=== PATIENT | female | born 1945 | race Caucasian/White ===

== ENCOUNTER 2016-07-07 15:59 | Inpatient (IN) | payer MEDICARE, OTHER ==
[2016-07-07] MEDS ORDERED: SODIUM CHLORIDE 0.9% 1,000 ML IV ONE ×2 (16:51)
[2016-07-07] MEDS ORDERED: ONDANSETRON 4 MG/2 ML VIAL IVP PRN (18:00)
[2016-07-07] MEDS ORDERED: PHENYTOIN ER 100 MG CAPSULE PO SCH (18:00)
[2016-07-07] MEDS ORDERED: PROCHLORPERAZINE 10 MG/2 ML VIAL IVP PRN (18:00)
[2016-07-07] MEDS ORDERED: HYDROcod/ACETAM 10 MG/325 MG TABLET PO PRN (18:00)
[2016-07-07] MEDS ORDERED: SODIUM CHLORIDE 0.9% 1,000 ML IV SCH (18:00)
[2016-07-07] MEDS ORDERED: ACETAMINOPHEN 325 MG TABLET PO PRN (18:00)
[2016-07-07] MEDS ORDERED: SODIUM CHLORIDE FLUSH 0.9% 10 ML SYRINGE IVP PRN (18:00)
[2016-07-07] MEDS ORDERED: HYDROcod/ACETAM 5/325 MG TABLET PO STA (18:47)
[2016-07-07] MEDS: SODIUM CHLORIDE 0.9% 1,000 ML IV SCH (20:16)
[2016-07-07] MEDS: MAGNESIUM OXIDE 400 MG TABLET PO SCH (20:16)
[2016-07-07] MEDS: NEUTRA-PHOS 250 MG TABLET PO SCH (20:16)
[2016-07-07] MEDS: ATORVASTATIN 40 MG TABLET PO SCH (20:17)
[2016-07-07] MEDS: cefTRIAXone 1 GM in SODIUM CHLORIDE 0.9% MINIBAG 100 ML IV SCH (20:18)
[2016-07-07] MEDS: SODIUM CHLORIDE FLUSH 0.9% 10 ML SYRINGE IVP SCH (20:24)
[2016-07-07] MEDS: ZOLPIDEM 5 MG TABLET PO PRN (22:39)
[2016-07-08] MEDS: HYDROcod/ACETAM 5/325 MG TABLET PO PRN ×7 (00:16→22:00)
[2016-07-08] MEDS: SODIUM CHLORIDE 0.9% 1,000 ML IV SCH (03:36)
[2016-07-08] MEDS: SODIUM CHLORIDE FLUSH 0.9% 10 ML SYRINGE IVP SCH ×3 (05:22→20:20)
[2016-07-08] MEDS: PANTOPRAZOLE 40 MG TABLET PO SCH (06:11)
[2016-07-08] MEDS: POLYETHYLENE GLYCOL 3350 17 GM PACKET PO SCH (07:56)
[2016-07-08] MEDS: MAGNESIUM OXIDE 400 MG TABLET PO SCH (08:57)
[2016-07-08] MEDS: ENOXAPARIN 30 MG/0.3 ML SYRINGE SUBQ SCH (08:57)
[2016-07-08] MEDS: NEUTRA-PHOS 250 MG TABLET PO SCH ×3 (08:57→17:10)
[2016-07-08] MEDS: FELODIPINE ER 2.5 MG TABLET PO SCH (08:58)
[2016-07-08] MEDS ORDERED: ENOXAPARIN 40 MG/0.4 ML SYRINGE SUBQ SCH (09:00)
[2016-07-08] MEDS: NS W/20 MEQ KCL 1,000 ML IV SCH (16:16)
[2016-07-08] MEDS: cefTRIAXone 1 GM in SODIUM CHLORIDE 0.9% MINIBAG 100 ML IV SCH (20:13)
[2016-07-08] MEDS: ATORVASTATIN 40 MG TABLET PO SCH (20:13)
[2016-07-08] MEDS: ZOLPIDEM 5 MG TABLET PO PRN (22:02)
[2016-07-09] MEDS: SODIUM CHLORIDE FLUSH 0.9% 10 ML SYRINGE IVP SCH ×2 (06:09→08:40)
[2016-07-09] MEDS: PANTOPRAZOLE 40 MG TABLET PO SCH (06:09)
[2016-07-09] MEDS: HYDROcod/ACETAM 5/325 MG TABLET PO PRN (06:09)
[2016-07-09] MEDS: NS W/20 MEQ KCL 1,000 ML IV SCH (06:12)
[2016-07-09] MEDS: MAGNESIUM OXIDE 400 MG TABLET PO SCH (08:39)
[2016-07-09] MEDS: POLYETHYLENE GLYCOL 3350 17 GM PACKET PO SCH (08:39)
[2016-07-09] MEDS: NEUTRA-PHOS 250 MG TABLET PO SCH (08:39)
[2016-07-09] MEDS: ENOXAPARIN 30 MG/0.3 ML SYRINGE SUBQ SCH (08:39)
[2016-07-09] MEDS: FELODIPINE ER 2.5 MG TABLET PO SCH (08:40)
== END 2016-07-09 10:46 | disposition home or self-care (01) | DRG 690 ==
DX: N39.0 Urinary tract infection, site not specified (principal); E86.0 Dehydration; E87.1 Hypo-osmolality and hyponatremia; N17.9 Acute kidney failure, unspecified; E87.2 Acidosis; B96.89 Other specified bacterial agents as the cause of diseases classified elsewhere; E83.39 Other disorders of phosphorus metabolism; E83.42 Hypomagnesemia; N28.9 Disorder of kidney and ureter, unspecified; I10 Essential (primary) hypertension; E78.5 Hyperlipidemia, unspecified; R19.7 Diarrhea, unspecified; Z86.73 Personal history of transient ischemic attack (TIA), and cerebral infarction without residual deficits; Z79.899 Other long term (current) drug therapy; Z87.891 Personal history of nicotine dependence

== ENCOUNTER 2016-07-30 14:26 | Outpatient (CLI) | payer MEDICARE, OTHER | END 2016-07-30 14:27 | disposition home or self-care (01) | DX: N28.1 Cyst of kidney, acquired (principal) ==

== ENCOUNTER 2016-08-19 11:43 | Outpatient (CLI) | payer MEDICARE, OTHER | END 2016-08-19 11:44 | disposition home or self-care (01) | DX: N05.9 Unspecified nephritic syndrome with unspecified morphologic changes (principal); R80.9 Proteinuria, unspecified ==

== ENCOUNTER 2016-10-25 16:26 | Emergency (ER) | payer MEDICARE, OTHER ==
--- NOTE | 2016-10-25 16:39 | ED Physician Documentation ---
PD HPI FOCAL NEURO - Stated complaint Stated Complaint: SOA, CONFUSION - Chief complaint Chief Complaint: General - History obtained from History obtained from: Patient, Family - History of Present Illness Timing - onset: Other (For the last 2 days she has had intermittent confusion, shortness of breath, it was preceded by headache and diarrhea but no fevers. She is worried because a few years ago she had some strokes and it presented similarly. She has a tremor in the left upper extremity that comes and goes.) Review of Systems Ten Systems: 10 systems reviewed and negative Constitutional: denies: Fever, Chills Cardiac: denies: Chest pain / pressure, Palpitations Respiratory: denies: Cough, Hemoptysis, Wheezing GI: denies: Abdominal Pain PD PAST MEDICAL HISTORY - Past Medical History Cardiovascular: Hypertension, High cholesterol Respiratory: None Neuro: TIA Endocrine/Autoimmune: None GI: Hemorrhoids, Diverticulitis : None HEENT: Chronic hearing loss Psych: None Musculoskeletal: Other Derm: None - Past Surgical History Past Surgical History: Yes 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, 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 - Present Medications Home Medications: Ambulatory Orders Medication Instructions Recorded Confirmed Benazepril HCl 40 mg PO BID 07/07/16 07/07/16 Felodipine [Felodipine ER] 10 mg PO DAILY 07/07/16 07/07/16 Hydrocodone/Acetaminophen 1 - 2 tab PO .Q4-6H PRN 07/07/16 07/08/16 [Hydrocodon-Acetaminophen 5-325] Lovastatin 40 mg PO QPM 07/07/16 07/08/16 Omeprazole [PriLOSEC] 20 mg PO QDAC 07/07/16 07/08/16 Zolpidem [Ambien] 10 mg PO QPM 07/07/16 07/08/16 Ciprofloxacin [Cipro] 250 mg PO Q12H #10 tablet 07/09/16 HYDROcod/ACETAM 5/325 [[place] 5/325] 1 tab PO Q4HR PRN #20 tablet 07/09/16 Acetaminophen with Codeine 1 each PO Q4H PRN #10 tablet 10/25/16 [Acetaminophen-Cod #3 Tablet] Ciprofloxacin [Cipro] 250 mg PO Q12H #10 tablet 10/25/16 - Allergies Allergies/Adverse Reactions: Allergies Allergy/AdvReac Type Severity Reaction Status Date / Time atenolol Allergy Unknown Verified 07/08/16 15:33 oxycodone Allergy Unknown Verified 07/08/16 15:33 - Social History Does the pt smoke?: No Smoking Status: Former smoker - Family History Family history: reports: Non contributory PD ED PE NORMAL - Vitals Vital signs reviewed: Yes - General General: Other (She appears anxious, Says it is October 30 2013, but knows the president.) - HEENT HEENT: PERRL, EOMI - Neck Neck: Supple, no meningeal sign, No bony TTP - Cardiac Cardiac: RRR, No murmur - Respiratory Respiratory: No respiratory distress, Clear bilaterally - Abdomen Abdomen: Soft, Non tender - Back Back: No CVA TTP, No spinal TTP - Derm Derm: Normal color, Warm and dry - Extremities Extremities: No edema, No calf tenderness / cord - Neuro Neuro: No motor deficit, No sensory deficit - Psych Psych: Normal mood, Normal affect NIHSS - Time Time: 16:35 - Level of Consciousness Level of consciousness: (0) Alert, Keenly responsive LOC Questions: (1) Answers one Q correctly LOC Commands: (0) Performs both correctly - Gaze Best Gaze: (0) Normal - Visual Visual: (0) No loss - Facial Palsy Facial Palsy: (0) Normal, symmetrical movement - Motor Arms (both separate) Motor Arm (right): (0) No drift Motor Arm (left): (0) No drift - Motor Legs (both separate) Motor Leg (right): (0) No drift Motor Leg (left): (0) No drift - Limb Ataxia Limb Ataxia: (0) Absent - Sensory Sensory: (0) Normal - Best Language Best Language: (0) No aphasia - Dysarthria Dysarthria: (0) Normal - Extinction and Inattention (formally neg Extinction and inattention: (0) No abnormality - Total Score/Results Total Score/Result: 1 Results - Vitals Vitals: Vital Signs - 24 hr 10/25/16 10/25/16 10/25/16 16:30 17:42 19:35 Temperature 36.8 C Heart Rate 97 77 64 Respiratory 22 16 16 Rate Blood Pressure 129/97 H 117/65 114/58 L O2 Saturation 98 99 99 Oxygen O2 Source Room air - EKG (time done) 1647 Rate: Rate (enter#) Rhythm: NSR (frequent PVCs) Assumption: Normal Intervals: Normal RI QRS: Normal Ischemia: Normal ST segments Computer interpretation: Agree with computer - Labs Labs: Laboratory Tests 10/25/16 10/25/16 10/25/16 16:41 16:41 16:41 WBC 13.6 H RBC 4.48 Hgb 12.2 Hct 37.3 MCV 83.1 MCH 27.2 MCHC 32.7 RDW 15.2 H Plt Count 361 MPV 8.4 Neut # 10.4 H Lymph # 2.4 [place] # 0.8 Eos # 0.0 Baso # 0.1 Absolute Nucleated RBC 0.00 Nucleated RBCs 0.0 VBG pH VBG pCO2 VBG pO2 VBG HCO3 VBG Total CO2 VBG O2 Saturation VBG Base Excess Sodium 134 L Potassium 3.6 Chloride 99 L Carbon Dioxide 21 Anion Gap 14.0 H BUN 26 H Creatinine 1.6 H Estimated GFR (MDRD) 32 L Glucose 114 H Calcium 9.7 Magnesium 1.5 L Total Bilirubin 0.6 AST 30 ALT 18 Alkaline Phosphatase 75 Troponin I < 0.04 Total Protein 8.0 Albumin 4.1 Globulin 3.9 Albumin/Globulin Ratio 1.1 Lipase 25 Urine Color Urine Clarity Urine pH Ur Specific [place] Urine Protein Urine Glucose (UA) Urine Ketones Urine Occult Blood Urine Nitrite Urine Bilirubin Urine Urobilinogen Ur Leukocyte Esterase Urine RBC Urine WBC Ur Squamous Epith Cells Urine Bacteria Ur Microscopic Review Urine Culture Comments 10/25/16 10/25/16 16:41 17:55 WBC RBC Hgb Hct MCV MCH MCHC RDW Plt Count MPV Neut # Lymph # [place] # Eos # Baso # Absolute Nucleated RBC Nucleated RBCs VBG pH 7.479 H VBG pCO2 26.3 L VBG pO2 29.6 VBG HCO3 19.1 L VBG Total CO2 19.9 L VBG O2 Saturation 69.0 VBG Base Excess -2.7 L Sodium Potassium Chloride Carbon Dioxide Anion Gap BUN Creatinine Estimated GFR (MDRD) Glucose Calcium Magnesium Total Bilirubin AST ALT Alkaline Phosphatase Troponin I Total Protein Albumin Globulin Albumin/Globulin Ratio Lipase Urine Color YELLOW Urine Clarity HAZY Urine pH 7.5 Ur Specific [place] 1.010 Urine Protein NEGATIVE Urine Glucose (UA) NEGATIVE Urine Ketones NEGATIVE Urine Occult Blood NEGATIVE Urine Nitrite POSITIVE H Urine Bilirubin NEGATIVE Urine Urobilinogen 0.2 (NORMAL) Ur Leukocyte Esterase SMALL H Urine RBC None Seen Urine WBC >25 H Ur Squamous Epith Cells NONE SEEN Urine Bacteria Moderate H Ur Microscopic Review INDICATED Urine Culture Comments INDICATED - Rads (name of study) CT Head Radiology: EMP read contemporaneously (atrophy which is somewhat assymetric ) PD MEDICAL DECISION MAKING - ED course ED course: She presents with mild confusion and tremor, her concern is for stroke, however no real evidence of this on exam. She is found to have a UTI and probably some anxiety/hyperventilation based on blood gas. She is feeling much better after reassurance, IV fluids, and Rocephin IV. Her BUN was up consistent with dehydration. Departure - Departure Disposition: Home, Self Care Clinical Impression: DANIA (acute kidney injury) UTI (urinary tract infection) Qualifiers: Urinary tract infection type: acute cystitis Hematuria presence: without hematuria Qualified Code(s): N30.00 - Acute cystitis without hematuria Condition: Good Record reviewed to determine appropriate education?: Yes Instructions: ED UTI Cystitis Female Prescriptions: Acetaminophen with Codeine [Acetaminophen-Cod #3 Tablet] 1 each PO Q4H PRN #10 tablet PRN Reason: Pain Ciprofloxacin [Cipro] 250 mg PO Q12H #10 tablet Comments: Follow-up with Dr. Harmon on Friday or Friday. Return if worse in the interim, especially if you are running a fever. You do have some asymmetry on your head CT, prior stroke probably caused that, discussed this with Dr. Harmon. We will culture your urine, the results should be done in 48-72 hours. If an antibiotic change is necessary we will call you. Return if worse in the meantime, especially if you develop increasing flank pain, fevers, or cannot keep down the medication. Discharge Date/Time: 10/25/16 19:36
[2016-10-25 16:48] LABS: BASOPHILS # (AUTO) 0.1 10^3/uL (0.0-0.1); BASOPHILS % (AUTO) 0.5 %; EOSINOPHILS % (AUTO) 0.3 %; HCT - HEMATOCRIT 37.3 % (37.0-47.0); HGB - HEMOGLOBIN 12.2 g/dL (12.0-16.0); LYMPHOCYTES # (AUTO) 2.4 10^3/uL (1.5-3.5); LYMPHOCYTES % (AUTO) 17.3 %; MEAN CORPUSCULAR HEMOGLOBIN 27.2 pg (27.0-31.0); MEAN CORPUSCULAR HGB CONC 32.7 g/dL (32.0-36.0); MEAN CORPUSCULAR VOLUME 83.1 fL (81.0-99.0); MEAN PLATELET VOLUME 8.4 fL (7.9-10.8); MONOCYTES # (AUTO) 0.8 10^3/uL (0.0-1.0); MONOCYTES % (AUTO) 5.8 %; NEUTROPHILS # (AUTO) 10.4 10^3/uL (1.5-6.6); NEUTROPHILS % (AUTO) 76.1 %; RED BLOOD COUNT 4.48 10^6/uL (4.20-5.40); RED CELL DISTRIBUTION WIDTH 15.2 % (12.0-15.0); UNCORRECTED WHITE BLOOD COUNT 13.6 x10^3/uL; WHITE BLOOD COUNT 13.6 x10^3/uL (4.8-10.8)
[2016-10-25 16:51] LABS: VBG PH 7.479 (7.31-7.41)
[2016-10-25 16:52] LABS: VBG BASE EXCESS -2.7 mmol/L (-2 - +2); VBG TOTAL CO2 19.9 mmol/L (24-29)
[2016-10-25 17:02] LABS: ALBUMIN/GLOBULIN RATIO 1.1 (1.0-2.2); BILIRUBIN,TOTAL 0.6 mg/dL (0.2-1.0); CALCIUM 9.7 mg/dL (8.5-10.3); CREATININE 1.6 mg/dL (0.4-1.0); MAGNESIUM 1.5 mg/dL (1.7-2.8); POTASSIUM 3.6 mmol/L (3.5-5.0)
[2016-10-25] MEDS ORDERED: SODIUM CHLORIDE 0.9% 1,000 ML IV ONE (17:39)
--- NOTE | 2016-10-25 18:11 | CT Preliminary Report ---
Exam: CT Head W/O IMPRESSION: Generalized age-related cortical atrophic changes without evidence of acute intracranial abnormality. There is asymmetry of the bilateral cerebral hemispheres with atrophy at the right parie sunil and occipital lobes greater than the left. An MRI of the brain without and with contrast is recom mended to further evaluate. [facility] SITE ID: [id number]
--- NOTE | 2016-10-25 18:14 | CT Report ---
EXAM: CT HEAD EXAM DATE: 10/25/2016 05:38 PM. CLINICAL HISTORY: Left upper extremity tremor, confusion. COMPARISON: None. TECHNIQUE: Multiaxial CT images were obtained from the foramen magnum to the vertex. IV contrast: Non e. Reformats: Coronal. In accordance with CT protocol optimization, one or more of the following dose reduction techniques w ere utilized for this exam: automated exposure control, adjustment of mA and/or KV based on patient s ize, or use of iterative reconstructive technique. FINDINGS: Parenchyma: No intraparenchymal hemorrhage. No midline shift, or CT findings of acute infarction. Gra y-white differentiation is distinct. Minimal bilateral supratentorial chronic microangiopathy suspect ed. Extraaxial Spaces: Normal for age. No subdural or epidural collections identified. Ventricles: The ventricles and cortical sulci are enlarged, consistent with age-related tissue loss. There is more cerebral cortical atrophy in the right parietal and occipital lobes compared to the le ft. Sinuses: Imaged paranasal sinuses, orbits, and mastoids show no significant abnormality. Bones: No evidence of fracture or calvarial defect. IMPRESSION: Generalized age-related cortical atrophic changes without evidence of acute intracranial abnormality. There is asymmetry of the bilateral cerebral hemispheres with atrophy at the right parie sunil and occipital lobes greater than the left. An MRI of the brain without and with contrast is recom mended to further evaluate. [facility] Referring Provider Line: [phone] SITE ID: [id number]
[2016-10-25 18:15] LABS: BILIRUBIN,URINE NEGATIVE (NEGATIVE); PH,URINE 7.5 PH (5.0-7.5); UA w/ MICROSCOPIC CHARGE YES
[2016-10-25 18:27] LABS: WBC,URINE >25 /HPF (0-5)
[2016-10-25 18:28] LABS: UR CULTURE IF IND INDICATED
[2016-10-25] MEDS ORDERED: ACETAMINOPHEN/CODEINE 300 MG/30 MG TABLET PO STA (18:46)
[2016-10-25] MEDS ORDERED: cefTRIAXone 1 GM in SODIUM CHLORIDE 0.9% MINIBAG 100 ML IV STA (18:46)
[2016-10-25] MEDS ORDERED: cefTRIAXone 1 GM VIAL ONE (18:52)
[2016-10-25] MEDS ORDERED: ACETAMINOPHEN/CODEINE 300 MG/30 MG TABLET PO ONE (18:52)
[2016-10-25 19:36] VITALS: BP 114/58
== END 2016-10-25 19:36 | disposition home or self-care (01) ==
LOC: ED 16:26
DX: N17.9 Acute kidney failure, unspecified (principal); N30.00 Acute cystitis without hematuria; I10 Essential (primary) hypertension; R94.31 Abnormal electrocardiogram [ECG] [EKG]; Z86.73 Personal history of transient ischemic attack (TIA), and cerebral infarction without residual deficits; Z87.891 Personal history of nicotine dependence
CPT/HCPCS: 36415; 51701; 70450; 80053; 81001; 82803; 83690; 83735; 84484; 85025; 87077; 87086; 87181; 93005; 96374; 99284; 99285; A9270; 81003

== ENCOUNTER 2017-03-07 09:36 | Outpatient (CLI) | payer MEDICARE, OTHER | END 2017-03-07 09:37 | disposition short-term general hospital (02) | LOC: EMS 09:36 | PROVIDERS: ATTEND Surgery | DX: R11.2 Nausea with vomiting, unspecified (principal) | CPT/HCPCS: A0170; A0425; A0427 ==

== ENCOUNTER 2017-12-22 08:58 | Emergency (ER) | payer MEDICARE, OTHER ==
[2017-12-22] MEDS ORDERED: KETOROLAC 60 MG/2 ML VIAL IM STA (10:05)
[2017-12-22] MEDS ORDERED: DEXAMETHASONE 10 MG/ML VIAL PO STA (10:05)
[2017-12-22] MEDS ORDERED: CHERRY SYRUP 10 ML UDC PO ONE (10:09)
[2017-12-22] MEDS ORDERED: HYDROcod/ACETAM 5/325 MG TABLET PO STA (11:22)
--- NOTE | 2017-12-22 11:51 | XRAY Report ---
Reason: fall knee contusion MCL sprain Procedure Date: 12/22/2017 Accession Number: [id number] / [id number] Procedure: XR - Knee 4 View LT CPT Code: FULL RESULT: EXAM: LEFT KNEE RADIOGRAPHY EXAM DATE: 12/22/2017 10:41 AM. CLINICAL HISTORY: Fall knee contusion MCL sprain. COMPARISON: None. TECHNIQUE: 3 views. FINDINGS: Bones: No fractures or destructive bone lesions. Joints: Moderate to severe diminishment of joint space with periarticular spurring in the tricompartments, worse in the lateral compartment and small amount of knee joint effusion visualized. No dislocation. Soft Tissues: No soft tissue swelling. IMPRESSION: 1. Negative for fracture or dislocation. 2. 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 Kellgren and Mamadou classification of osteoarthritis: Grade 0: no radiographic features of osteoarthritis are present Grade 1: doubtful joint space narrowing (JSN) and possible osteophytic lipping Grade 2: definite osteophytes and possible JSN on anteroposterior weight-bearing radiograph Grade 3: multiple osteophytes, definite JSN, sclerosis, possible bony deformity Grade 4: large osteophytes, marked JSN, severe sclerosis and definite bony deformity [facility]
--- NOTE | 2017-12-22 11:52 | XRAY Report ---
Reason: chest wall contusion Procedure Date: 12/22/2017 Accession Number: [id number] / [id number] Procedure: XR - Ribs w/PA Chest LT CPT Code: FULL RESULT: EXAM: LEFT RIB RADIOGRAPHY EXAM DATE: 12/22/2017 10:42 AM. CLINICAL HISTORY: Chest wall contusion 3 days ago, the left rib pain. COMPARISON: None. TECHNIQUE: 1 view of the chest and 2 views of the ribs. FINDINGS: Bones: No fracture or bone lesion. Lungs: No focal opacities. No pneumothorax. No pleural effusions. Mediastinum: Heart and mediastinal contours are unremarkable. IMPRESSION: Negative chest and left rib radiography. [facility]
[2017-12-22 12:00] VITALS: BP 131/82
--- NOTE | 2017-12-22 12:02 | ED Physician Documentation ---
PD HPI Fall - Stated complaint Stated Complaint: LT SIDED/BACK PX/GLF - Chief complaint Chief Complaint: Trauma Ext - History obtained from History obtained from: Patient, Family - History of Present Illness Mechanism of injury: Tripped Fall distance: Standing position Where injury occurred: Home Timing - onset: How many days ago (4) Injury(ies) location: Chest, Left Uppper Extremity, Left Lower Extremity Quality of pain: Pain Associated symptoms: No: LOC, AMS, Amnesia, Seizures, Ear drainage, Nasal drainage, Neck pain, Weakness, Paresthesias, Dyspnea, Nausea / vomiting, Hematemesis, Abdominal distension Symptoms improve with: Rest Worsens with: Movement, Palpation Contributing factors: No: Anticoagulated Similar symptoms before: Has not had sx before Recently seen: Not recently seen - Additional information Additional information: 72-year-old female had a fall in her home 4 days ago she tripped and fell onto her left side and she has a burn to her left elbow and pain in her left chest with a bruise to the area. She states the pain in her left chest is worse today and she was expecting to improve. She also has pain in her left knee especially with ambulation and the knee feels unstable. She is always had pain in her knees. Review of Systems Constitutional: denies: Fever Eyes: denies: Decreased vision Ears: denies: Ear pain Nose: denies: Congestion Throat: denies: Sore throat Cardiac: reports: Chest pain / pressure. denies: Palpitations, Pedal edema, Calf pain Respiratory: denies: Dyspnea, Cough GI: denies: Abdominal Pain, Nausea, Vomiting : denies: Dysuria, Frequency Musculoskeletal: reports: Extremity pain, Joint pain, Extremity swelling, Joint swelling, Pain with weight bearing. 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 - Present Medications Home Medications: Ambulatory Orders Medication Instructions Recorded Confirmed Benazepril HCl 40 mg PO BID 07/07/16 07/07/16 Felodipine [Felodipine ER] 10 mg PO DAILY 07/07/16 07/07/16 Hydrocodone/Acetaminophen 1 - 2 tab PO .Q4-6H PRN 07/07/16 07/08/16 [Hydrocodone-Acetamin 5-325 mg] Lovastatin 40 mg PO QPM 07/07/16 07/08/16 Omeprazole [PriLOSEC] 20 mg PO QDAC 07/07/16 07/08/16 Zolpidem [Ambien] 10 mg PO QPM 07/07/16 07/08/16 Ciprofloxacin [Cipro] 250 mg PO Q12H #10 tablet 07/09/16 HYDROcod/ACETAM 5/325 [[place] 5/325] 1 tab PO Q4HR PRN #20 tablet 07/09/16 Acetaminophen with Codeine 1 each PO Q4H PRN #10 tablet 10/25/16 [Acetaminophen-Cod #3 Tablet] Ciprofloxacin [Cipro] 250 mg PO Q12H #10 tablet 10/25/16 HYDROcod/ACETAM 5/325 [[place] 5/325] 1 - 2 ea PO Q6H PRN #15 tablet 12/22/17 - Allergies Allergies/Adverse Reactions: Allergies Allergy/AdvReac Type Severity Reaction Status Date / Time No Known Drug Allergies Allergy Verified 12/22/17 09:16 - Social History Does the pt smoke?: No Smoking Status: Never smoker Does the pt drink ETOH?: No Does the pt have substance abuse?: No - Immunizations Immunizations are current?: Yes PD ED PE NORMAL - Vitals Vital signs reviewed: Yes (tachy ) - General General: No acute distress, Well developed/nourished - HEENT HEENT: Atraumatic, PERRL, EOMI - Neck Neck: Supple, no meningeal sign - Cardiac Cardiac: RRR, No murmur - Respiratory Respiratory: No respiratory distress, Clear bilaterally, Other (There is ecchymosis to the left lateral chest wall superior to the breast under the axilla. ) - Abdomen Abdomen: Soft, Non tender - Back Back: No CVA TTP, No spinal TTP - Derm Derm: Normal color, Warm and dry, No rash - Extremities Extremities: No deformity, No edema, Other (There is swelling and point tenderness to the left knee. There is instability of the medial collateral ligmament. There is full ROM without much pain. 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, No motor deficit, No sensory deficit, Normal speech Eye Opening: Spontaneous Motor: Obeys Commands Verbal: Oriented GCS Score: 15 - Psych Psych: Normal mood, Normal affect Results - Vitals Vitals: Vital Signs - 24 hr 12/22/17 12/22/17 12/22/17 09:11 12:00 12:29 Temperature 36.4 C L 36.0 C L Heart Rate 102 H 92 Respiratory 20 20 Rate Blood Pressure 114/68 131/82 H O2 Saturation 98 98 Oxygen O2 Source Room air - Rads (name of study) ribs and PA chest Radiology: Prelim report reviewed (Impression: Negative chest and left rib radiography.), EMP read indepedently, See rad report left knee Radiology: Prelim report reviewed (Impression: 1. Negative for fracture or dislocation. 2 Osteoarthritis, predominantly in the lateral compartment kilogram Mamadou grade 3.), EMP read indepedently, See rad report PD MEDICAL DECISION MAKING - ED course Complexity details: reviewed results, re-evaluated patient, considered differential, d/w patient, d/w family ED course: 72-year-old female with a ground-level fall has a contusion to the chest wall and 4 days later she has worsening pain. She is come to the emergency department with this pain in her left chest and some swelling and instability of the left knee. She does appear to have sprain of the medial collateral ligament. She is administered dexamethasone and Toradol here in the emergency department she is eventually given hydrocodone as well she does have improvement with all those measures in her pain. She is subsequently placed into a knee immobilizer as well. She feels that she is able to ambulate more easily with this and does not have a feeling of instability. - Sepsis Event Vital Signs: Vital Signs - 24 hr 12/22/17 12/22/17 12/22/17 09:11 12:00 12:29 Temperature 36.4 C L 36.0 C L Heart Rate 102 H 92 Respiratory 20 20 Rate Blood Pressure 114/68 131/82 H O2 Saturation 98 98 Oxygen O2 Source Room air Departure - Departure Disposition: 01 Home, Self Care Clinical Impression: Chest wall contusion Qualifiers: Encounter type: initial encounter Laterality: left Qualified Code(s): S20.212A - Contusion of left front wall of thorax, initial encounter Sprain of left knee Qualifiers: Encounter type: initial encounter Involved ligament of knee: medial collateral ligament Qualified Code(s): S83.412A - Sprain of medial collateral ligament of left knee, initial encounter Condition: Stable Instructions: ED Contusion Chest Wall, ED Sprain Knee Follow-Up: Dee Harmon MD [Primary Care Provider] - Prescriptions: HYDROcod/ACETAM 5/325 [[place] 5/325] 1 - 2 ea PO Q6H PRN #15 tablet PRN Reason: Pain Discharge Date/Time: 12/22/17 12:35
== END 2017-12-22 12:35 | disposition home or self-care (01) ==
LOC: ED 08:58
DX: S20.212A Contusion of left front wall of thorax, initial encounter (principal); S83.412A Sprain of medial collateral ligament of left knee, initial encounter; I10 Essential (primary) hypertension; W01.0XXA Fall on same level from slipping, tripping and stumbling without subsequent striking against object, initial encounter; Y92.009 Unspecified place in unspecified non-institutional (private) residence as the place of occurrence of the external cause
CPT/HCPCS: 71101; 73564; 96372; 99283; A9270

== ENCOUNTER 2018-07-18 16:26 | Outpatient (CLI) | payer MEDICARE, OTHER | END 2018-07-18 16:27 | disposition critical access hospital (66) | LOC: EMS 16:26 | PROVIDERS: ATTEND Surgery | DX: R55 Syncope and collapse (principal); R11.2 Nausea with vomiting, unspecified; R19.7 Diarrhea, unspecified; R53.1 Weakness | CPT/HCPCS: A0425; A0427 ==

== ENCOUNTER 2018-07-18 16:51 | Emergency (ER) | payer MEDICARE, OTHER ==
[2018-07-18] MEDS ORDERED: SODIUM CHLORIDE 0.9% 2,000 ML IV ONE (17:04)
[2018-07-18] MEDS ORDERED: ONDANSETRON 4 MG/2 ML VIAL IVP STA (17:05)
--- NOTE | 2018-07-18 17:05 | ED Physician Documentation ---
History of Present Illness - Stated complaint Stated Complaint: N/V/D - Chief complaint Chief Complaint: General - History obtained from History obtained from: Patient, EMS - Additonal information Additional information: Patient is a 72-year-old female with history of hypertension, chronic back pain presenting with nausea and vomiting over the past 2-1/2 days. Patient reports eating out to lunch prior to her symptoms starting. Patient otherwise denies new medications, other exposures, or recent travel. Patient denies fever, abdominal pain, chest pain, difficulty breathing, urinary changes, but does admit to loose, although nonbloody stools. Patient's only pain complaint is her chronic back pain, which is relatively unchanged from baseline. No other improving or worsening factors noted. Patient received Zofran 4 mg by EMS prior to arrival. Review of Systems Constitutional: denies: Fever GI: reports: Nausea, Vomiting, Diarrhea. denies: Abdominal Pain PD PAST MEDICAL HISTORY - Past Medical History Cardiovascular: Hypertension Musculoskeletal: Chronic back pain - Present Medications Home Medications: Ambulatory Orders Medication Instructions Recorded Confirmed Benazepril HCl 40 mg PO BID 07/07/16 07/07/16 Felodipine [Felodipine ER] 10 mg PO DAILY 07/07/16 07/07/16 Hydrocodone/Acetaminophen 1 - 2 tab PO .Q4-6H PRN 07/07/16 07/08/16 [Hydrocodone-Acetamin 5-325 mg] Lovastatin 40 mg PO QPM 07/07/16 07/08/16 Omeprazole [PriLOSEC] 20 mg PO QDAC 07/07/16 07/08/16 Zolpidem [Ambien] 10 mg PO QPM 07/07/16 07/08/16 Ciprofloxacin [Cipro] 250 mg PO Q12H #10 tablet 07/09/16 HYDROcod/ACETAM 5/325 [[place] 5/325] 1 tab PO Q4HR PRN #20 tablet 07/09/16 Acetaminophen with Codeine 1 each PO Q4H PRN #10 tablet 10/25/16 [Acetaminophen-Cod #3 Tablet] Ciprofloxacin [Cipro] 250 mg PO Q12H #10 tablet 10/25/16 HYDROcod/ACETAM 5/325 [[place] 5/325] 1 - 2 ea PO Q6H PRN #15 tablet 12/22/17 Aspirin 81 mg PO 07/18/18 07/18/18 Benazepril HCl 40 mg PO 07/18/18 Felodipine [Felodipine ER] 10 mg PO 07/18/18 Hydrocodone/Acetaminophen 1 each PO 07/18/18 [Hydrocodone-Acetamin 5-325 mg] Lovastatin 40 mg PO 07/18/18 Omeprazole 20 mg PO 07/18/18 Potassium Gluconate 99 mg PO 07/18/18 Zolpidem Tartrate [Ambien] 10 mg PO 07/18/18 hydroCHLOROthiazide 25 mg PO 07/18/18 [Hydrochlorothiazide] - Allergies Allergies/Adverse Reactions: Allergies Allergy/AdvReac Type Severity Reaction Status Date / Time No Known Drug Allergies Allergy Unverified 07/18/18 17:01 PD ED PE NORMAL - General General: Alert and oriented X 3, Well developed/nourished, Other (Actively vomiting, sitting forward in bed and uncomfortable appearing) - HEENT HEENT: Atraumatic, Pharynx benign. No: Moist mucous membranes (Dry mucous membranes) - Cardiac Cardiac: RRR, No murmur - Respiratory Respiratory: No respiratory distress, Clear bilaterally - Abdomen Abdomen: Normal bowel sounds, Soft, Non tender, Non distended - Derm Derm: Normal color, Warm and dry, No rash - Extremities Extremities: No deformity, No tenderness to palpate, No edema - Neuro Neuro: Alert and oriented X 3, No motor deficit, No sensory deficit - Psych Psych: Normal mood, Normal affect Results - Vitals Vitals: Vital Signs - 24 hr 07/18/18 07/18/18 07/18/18 17:02 17:23 18:30 Temperature 35.8 C L 36.5 C Heart Rate 114 H 104 H 101 H Respiratory 20 30 H 24 Rate Blood Pressure 104/41 L 133/65 H 103/80 O2 Saturation 99 96 100 07/18/18 07/18/18 07/18/18 20:23 20:29 21:00 Temperature 36.1 C L Heart Rate 105 H 106 H 110 H Respiratory 24 24 20 Rate Blood Pressure 106/65 106/65 93/66 O2 Saturation 96 95 95 07/18/18 22:41 Temperature 36.7 C Heart Rate 112 H Respiratory 36 H Rate Blood Pressure 77/57 L O2 Saturation 93 Oxygen O2 Source Room air - EKG (time done) 1725 Rate: Rate (enter#) (103) Rhythm: Sinus tachycardia Ischemia: Non specific changes Other comments: Other comments (changes mostly noticed in V2 and V3. Slight changes of LVH also noticed in those 2 leads. Remainder of leads have low voltage. Feel likely due to artifact, placement, and patient movement.) - Labs Labs: Laboratory Tests 07/18/18 07/18/18 07/18/18 17:10 17:50 18:20 WBC 22.6 H RBC 4.30 Hgb 12.3 Hct 38.3 MCV 89.0 MCH 28.7 MCHC 32.2 RDW 15.4 H Plt Count 286 MPV 8.4 Neut # (Auto) Not Reportable Lymph # (Auto) Not Reportable George # (Auto) Not Reportable Eos # (Auto) Not Reportable Baso # (Auto) Not Reportable Absolute Nucleated RBC Not Reportable Total Counted 100 Band Neuts % (Manual) 6 Abnorm Lymph % (Manual) 0 Nucleated RBC % Not Reportable Neutrophils # (Manual) 21.5 H Lymphocytes # (Manual) 0.5 L Monocytes # (Manual) 0.5 Eosinophils # (Manual) 0.2 Basophils # (Manual) 0.0 Differential Comment MANUAL DIFFERENTIAL Manual Slide Review Indicated WBC Morphology 1+ TOXIC GRANULATION Platelet Estimate NORMAL (130-450,000) Platelet Morphology NORMAL APPEARANCE RBC Morph Micro Appear NORMAL APPEARANCE Sodium Potassium Chloride Carbon Dioxide Anion Gap BUN Creatinine Estimated GFR (MDRD) Glucose Lactic Acid 3.9 H* Calcium Total Bilirubin AST ALT Alkaline Phosphatase Troponin I Total Protein Albumin Globulin Albumin/Globulin Ratio Lipase Urine Color Urine Clarity Urine pH Ur Specific Mercer Urine Protein Urine Glucose (UA) Urine Ketones Urine Occult Blood Urine Nitrite Urine Bilirubin Urine Urobilinogen Ur Leukocyte Esterase Urine RBC Urine WBC Ur Squamous Epith Cells Amorphous Sediment Urine Bacteria Ur Microscopic Review Urine Culture Comments Gastric Fluid pH Gastric Occult Blood Influenza A (Rapid) Negative Influenza B (Rapid) Negative 07/18/18 07/18/18 07/18/18 18:20 18:20 18:56 WBC RBC Hgb Hct MCV MCH MCHC RDW Plt Count MPV Neut # (Auto) Lymph # (Auto) George # (Auto) Eos # (Auto) Baso # (Auto) Absolute Nucleated RBC Total Counted Band Neuts % (Manual) Abnorm Lymph % (Manual) Nucleated RBC % Neutrophils # (Manual) Lymphocytes # (Manual) Monocytes # (Manual) Eosinophils # (Manual) Basophils # (Manual) Differential Comment Manual Slide Review WBC Morphology Platelet Estimate Platelet Morphology RBC Morph Micro Appear Sodium 145 Potassium 3.6 Chloride 107 Carbon Dioxide 20 L Anion Gap 18.0 H BUN 49 H Creatinine 2.9 H Estimated GFR (MDRD) 16 L Glucose 94 Lactic Acid Calcium 9.0 Total Bilirubin 0.7 AST 72 H ALT 23 Alkaline Phosphatase 56 Troponin I 0.19 Total Protein 6.9 Albumin 3.5 Globulin 3.4 Albumin/Globulin Ratio 1.0 Lipase 51 Urine Color YELLOW Urine Clarity CLOUDY Urine pH 5.0 Ur Specific [place] 1.025 Urine Protein TRACE Urine Glucose (UA) NEGATIVE Urine Ketones TRACE Urine Occult Blood NEGATIVE Urine Nitrite NEGATIVE Urine Bilirubin NEGATIVE Urine Urobilinogen 0.2 (NORMAL) Ur Leukocyte Esterase MODERATE H Urine RBC 0-5 Urine WBC >25 H Ur Squamous Epith Cells RARE Squamous Amorphous Sediment Few Urine Bacteria Many H Ur Microscopic Review INDICATED Urine Culture Comments INDICATED Gastric Fluid pH Gastric Occult Blood Influenza A (Rapid) Influenza B (Rapid) 07/18/18 07/18/18 07/18/18 21:27 21:54 21:54 WBC 18.2 H RBC 4.46 Hgb 12.9 Hct 40.7 MCV 91.2 MCH 28.9 MCHC 31.7 L RDW 15.2 H Plt Count 239 MPV 8.4 Neut # (Auto) Not Reportable Lymph # (Auto) Not Reportable George # (Auto) Not Reportable Eos # (Auto) Not Reportable Baso # (Auto) Not Reportable Absolute Nucleated RBC Not Reportable Total Counted 100 Band Neuts % (Manual) 5 Abnorm Lymph % (Manual) 0 Nucleated RBC % Not Reportable Neutrophils # (Manual) 16.6 H Lymphocytes # (Manual) 0.9 L Monocytes # (Manual) 0.7 Eosinophils # (Manual) 0.0 Basophils # (Manual) 0.0 Differential Comment MANUAL DIFFERENTIAL Manual Slide Review WBC Morphology 1+ TOXIC GRANULATION Platelet Estimate NORMAL (130-450,000) Platelet Morphology NORMAL APPEARANCE RBC Morph Micro Appear NORMAL APPEARANCE Sodium Potassium Chloride Carbon Dioxide Anion Gap BUN Creatinine Estimated GFR (MDRD) Glucose Lactic Acid 2.1 Calcium Total Bilirubin AST ALT Alkaline Phosphatase Troponin I Total Protein Albumin Globulin Albumin/Globulin Ratio Lipase Urine Color Urine Clarity Urine pH Ur Specific Mercer Urine Protein Urine Glucose (UA) Urine Ketones Urine Occult Blood Urine Nitrite Urine Bilirubin Urine Urobilinogen Ur Leukocyte Esterase Urine RBC Urine WBC Ur Squamous Epith Cells Amorphous Sediment Urine Bacteria Ur Microscopic Review Urine Culture Comments Gastric Fluid pH 2.0 Gastric Occult Blood POSITIVE A Influenza A (Rapid) Influenza B (Rapid) PD MEDICAL DECISION MAKING - ED course Complexity details: reviewed results, re-evaluated patient, considered differential, d/w patient, d/w family, d/w economic consultant ED course: Most concerning for gastroenteritis, food poisoning, viral illness given patient's eating out and subsequently developing nausea and vomiting symptoms. Patient also reports loose, nonbloody stools. No stool able to be produced in ED so far, but if one is produced, will send for testing. Patient's vomit tested negative for blood as reported initially by nursing, but per lab, returned positive. I have low suspicion for esophageal varices, Myriam-Leos tear, Boerhaave's syndrome, particularly given lack of abdominal or chest pain, but with conflicting Gastrocult testing, these etiologies could be possible, as well as GI bleed otherwise. Also have lower suspicion for gallbladder disease, appendicitis, small bowel obstruction, diverticulitis, AAA, particularly given lack of abdominal pain. However, will obtain blood work and urine testing, including blood cultures and lactate given concern for infection/sepsis and abnormal vital signs. Patient started on multiple anti-emetics, as well as over 30 mg/kg fluid bolus given concern for sepsis. Flu swab also ordered, which returned negative. Imaging of abdomen will likely be ordered upon return of labs. Once fluids were started, patient's blood pressures rebounded well. Now that patient's blood pressure is improved, do feel appropriate to address her back pain as that is her largest complaint at the moment. Patient normally uses [place] daily, but given vomiting, will provide fentanyl, particularly as it is short acting and will likely have minimal effect on blood pressure.Patient continued on fluid resuscitation and lab work returned back concerning for significant leukocytosis, elevated lactic acid, acute kidney injury and urinalysis reflected of possible infection. Remainder of lab work relatively unremarkable, including negative troponin. EKG did not find evidence of ischemic changes or other significant abnormalities. Again, lower suspicion for cardiac etiology such as NV, unstable angina given lack of chest and breathing complaints, as well as other symptoms.Given these findings and persistent concern for infection, started empiric antibiotics of Rocephin and Flagyl. Also obtain CT imaging without contrast given acute kidney injury. CT imaging returned concerning for gastric outlet obstruction, likely from paraesophageal hiatal hernia. Radiology spoke with me and is unsure about degree of rotation, as well as possible presence of gas. This raises concern for possible esophageal or stomach perforation. Patient and family advised of results multiple times during ED stay, as well as contacted general surgery on-call, who also reviewed patient's workup and evaluated her in ED.General surgery felt most appropriate for transfer given complexity of disease process and resources required. Patient continued to complain of back discomfort and was again given another dose of fentanyl, but otherwise remained relatively asymptomatic with significantly improved control of nausea and vomiting. Again, had multiple discussions with patient and family regarding transfer plan. Multiple hospitals were contacted and eventually [facility] was able to accept transfer and multiple calls both to their surgery team, as well as the ICU team were made. Per surgery there, fluconazole was added. Just before flight to transfer, the accepting hospital called and requested NG tube placement. Unfortunately, there was some concern about placing the NG here with the possibility of perforation still being considered and given time and staffing, NG tube was not placed prior to transfer. This was relayed back to the accepting hospital, who felt comfortable still proceeding and will plan to place NG upon patient's arrival there. Patient continued on fluid resuscitation and did not require vasopressor interventions. During ED stay, it was exceedingly difficult to obtain appropriate IV placement and blood draws given patient being a difficult stick. Patient remains with one IV in place and most repeat blood was able to be drawn prior to departure. Patient did have improving white blood cell count as well as improving lactic acid upon redraw. - Critical Care Time(min): 60 Time Includes: Direct patient care, Reassess patient, Document care, Coordinate care, Medical consult Data interpretation: Labs, Pulse ox Departure - Departure Disposition: 02 Transfer Acute Care Hosp Clinical Impression: Gastric outlet obstruction Sepsis Qualifiers: Sepsis type: sepsis due to unspecified organism Qualified Code(s): A41.9 - Sepsis, unspecified organism Condition: Critical
[2018-07-18] MEDS ORDERED: METOCLOPRAMIDE 10 MG/2 ML VIAL IVP STA (17:23)
[2018-07-18] MEDS ORDERED: fentaNYL 100 MCG/2 ML VIAL IVP STA ×2 (17:29→21:17)
[2018-07-18 18:32] LABS: BASOPHILS % (AUTO) 0.3 %; HGB - HEMOGLOBIN 12.3 g/dL (12.0-16.0); LYMPHOCYTES % (AUTO) 4.1 %; MEAN CORPUSCULAR HEMOGLOBIN 28.7 pg (27.0-31.0); MEAN CORPUSCULAR HGB CONC 32.2 g/dL (32.0-36.0); MEAN PLATELET VOLUME 8.4 fL (7.9-10.8); MONOCYTES % (AUTO) 6.3 %; NEUTROPHILS % (AUTO) 89.3 %; PLT - PLATELET COUNT 286 10^3/uL (130-450); RED CELL DISTRIBUTION WIDTH 15.4 % (12.0-15.0); WHITE BLOOD COUNT 22.6 x10^3/uL (4.8-10.8)
[2018-07-18 18:34] LABS: ABNORMAL LYMPHS % (MANUAL) 0 %
[2018-07-18 18:43] LABS: ALBUMIN 3.5 g/dL (3.2-5.5); BILIRUBIN,TOTAL 0.7 mg/dL (0.2-1.0); CREATININE 2.9 mg/dL (0.4-1.0); TOTAL PROTEIN 6.9 g/dL (6.7-8.2)
[2018-07-18] MEDS ORDERED: SODIUM CHLORIDE 0.9% 1,000 ML IV ONE ×2 (18:58→22:02)
[2018-07-18] MEDS ORDERED: metroNIDAZOLE 500 MG/100 ML 500 MG/100 ML BAG IV STA (18:58)
[2018-07-18] MEDS ORDERED: cefTRIAXone 2 GM in SODIUM CHLORIDE 0.9% MINIBAG 100 ML IV STA (18:58)
[2018-07-18 19:04] LABS: BILIRUBIN,URINE NEGATIVE (NEGATIVE); GLUCOSE, URINE (UA) NEGATIVE (NEGATIVE); KETONES,URINE (UA) TRACE mg/dL (NEGATIVE); LEUKOCYTE ESTERASE, URINE MODERATE (NEGATIVE); NITRITE,URINE NEGATIVE (NEGATIVE); OCCULT BLOOD,URINE NEGATIVE (NEGATIVE); PROTEIN,URINE TRACE mg/dL (NEGATIVE); UROBILINOGEN,URINE 0.2 (NORMAL) E.U./dL (NORMAL)
[2018-07-18 19:06] LABS: CLARITY,URINE CLOUDY (CLEAR)
[2018-07-18 19:10] LABS: BAND NEUTROPHILS % (MANUAL) 6 %; EOSINOPHILS # (MANUAL) 0.2 10^3/uL (0-0.7); LYMPHOCYTES # (MANUAL) 0.5 10^3/uL (1.5-3.5); LYMPHOCYTES % (MANUAL) 2 %; MONOCYTES # (MANUAL) 0.5 10^3/uL (0.0-1.0); NEUTROPHILS # (MANUAL) 21.5 10^3/uL (1.5-6.6); NEUTROPHILS % (MANUAL) 89 %; PLATELET ESTIMATE, MANUAL NORMAL (130-450,000) (NORMAL); PLATELET MORPHOLOGY NORMAL APPEARANCE (NORMAL); RBC MORPHOLOGY (MULTIPLE) NORMAL APPEARANCE (NORMAL)
[2018-07-18 19:11] LABS: DIFFERENTIAL COMMENT MANUAL DIFFERENTIAL
[2018-07-18 19:18] LABS: AMORPHOUS SEDIMENT,UR Few /LPF; BACTERIA,URINE Many /HPF (None Seen); RBC,URINE 0-5 /HPF (0-5); SQUAMOUS EPITHELIAL CELL,UR RARE Squamous (<= Few)
--- NOTE | 2018-07-18 19:58 | CT Report ---
Reason: n/v/d for 3 days, elevated lactic, WBC Procedure Date: 07/18/2018 Accession Number: [id number] / [id number] Procedure: CT - Abdomen/Pelvis WO CPT Code: FULL RESULT: EXAM: CT ABDOMEN AND PELVIS EXAM DATE: 07/18/2018 07:26 PM. CLINICAL HISTORY: Nausea/vomiting and diarrhea x3 days. Elevated lactic acid and WBC. COMPARISONS: None. TECHNIQUE: Routine helical CT imaging was performed through the abdomen and pelvis. IV contrast: None. Enteric contrast: None. Reconstructions: Coronal and sagittal. In accordance with CT protocol optimization, one or more of the following dose reduction techniques were utilized for this exam: automated exposure control, adjustment of mA and/or KV based on patient size, or use of iterative reconstructive technique. FINDINGS: Lung Bases: Trace left pleural effusion. Liver: 1.3 cm cyst in the inferior right hepatic lobe (3/39). Otherwise unremarkable noncontrast appearance. Gallbladder/Bile Ducts: Post cholecystectomy. No biliary ductal dilatation. Spleen: Normal size. No contour deforming mass. Pancreas: No contour deforming mass or ductal dilatation. Adrenal Glands: Normal. Kidneys and Ureters: Atrophic kidneys with multiple cortical cysts bilaterally. A 0.8 cm hyperattenuating focus in the left upper pole cortex likely represents a proteinaceous cyst (5/36). No stones, hydronephrosis, or hydroureter. Peritoneal Cavity/GI Tract: Large paraesophageal type hiatal hernia containing the majority of the stomach. The proximal stomach is located beneath the diaphragm in the mid/distal stomach is located above the diaphragm with associated organoaxial rotation. The visualized esophagus and stomach are markedly dilated, with abrupt transition as the distal stomach passes inferiorly through the hernia neck (best seen on coronal image /). Mild perigastric fat stranding in the upper abdomen. Equivocal tiny pockets of extraluminal gas anterior to the intrathoracic portion of the stomach, versus cardiac motion artifact (/). Colon diverticulosis without focal colon wall thickening or adjacent mesenteric fat stranding to suggest acute diverticulitis. The appendix is not seen. Pelvic Organs: Post hysterectomy. The bladder is within normal limits. Transitional partially sacralized L5 vertebral body. Mild left convex curvature centered at L2-L3. Vasculature: Mild atherosclerotic calcifications within the aorta. Bones: Multilevel degenerative disk disease, most pronounced in moderate to severe at L4-L5. No acute bony abnormality. Other: Moderate size left and small right fat-containing bilateral inguinal hernias. IMPRESSION: 1. Complex paraesophageal type hiatal hernia with associated gastric outlet obstruction, as detailed above. Equivocal tiny pockets of extraluminal gas anterior to the intrathoracic portion of the stomach, versus cardiac motion artifact. 2. Colonic diverticulosis without noncontrast CT evidence for acute diverticulitis. 3. Trace left pleural effusion. [facility] The call report notification system was initiated by Dr. Asya Parra at 07:47 PM on 07/18/2018. The above call report findings were discussed with Britni Wheat by Dr. Asya Parra at 07:49 PM on 07/18/2018.
--- NOTE | 2018-07-18 20:34 | CONSULTATION NOTE ---
Referring Provider Name of Referring Provider:: Dr. Britni Wheat Consult Date: 07/18/18 Chief Complaint - Chief Complaint Chief Complaint: Paraesophageal hernia with likely gastric volvulus causind gastric outlet o History of Present Illness - Admitted From Admitted From:: Not admitted seen in ED - transfer to higher level of care indicated - History Obtained From Records Reviewed: Yes History obtained from: Dr. Wheat, patient, and chart Exam Limitations: None - History of Present Illness HPI Comment/Other: Dr. Britni Wheat consulted me on is very pleasant 72-year-old female after the patient presented to our emergency department with a history of nausea and vomiting since . The nausea and vomiting has been unremitting. There are no aggravating or alleviating factors. There is no melena or hematochezia. The patient has never had a previous esophagogastroduodenoscopy nor has she been told that she has a hiatal hernia. The only operation that she has had has been a vaginal hysterectomy as well as a laparoscopic cholecystectomy. The patient states that ever since her vaginal hysterectomy her stools have never been the same. The patient states that she got very dehydrated with the protracted vomiting and is feeling better now that she has received some IV fluids but she is throwing up even while she is talking to me. 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, Oophrectomy Meds/Allgy - Home Medications Home Medications: Ambulatory Orders Medication Instructions Recorded Confirmed Benazepril HCl 40 mg PO BID 07/07/16 07/07/16 Felodipine [Felodipine ER] 10 mg PO DAILY 07/07/16 07/07/16 Hydrocodone/Acetaminophen 1 - 2 tab PO .Q4-6H PRN 07/07/16 07/08/16 [Hydrocodone-Acetamin 5-325 mg] Lovastatin 40 mg PO QPM 07/07/16 07/08/16 Omeprazole [PriLOSEC] 20 mg PO QDAC 07/07/16 07/08/16 Zolpidem [Ambien] 10 mg PO QPM 07/07/16 07/08/16 Ciprofloxacin [Cipro] 250 mg PO Q12H #10 tablet 07/09/16 HYDROcod/ACETAM 5/325 [[place] 5/325] 1 tab PO Q4HR PRN #20 tablet 07/09/16 Acetaminophen with Codeine 1 each PO Q4H PRN #10 tablet 10/25/16 [Acetaminophen-Cod #3 Tablet] Ciprofloxacin [Cipro] 250 mg PO Q12H #10 tablet 10/25/16 HYDROcod/ACETAM 5/325 [[place] 5/325] 1 - 2 ea PO Q6H PRN #15 tablet 12/22/17 Aspirin 81 mg PO 07/18/18 07/18/18 Benazepril HCl 40 mg PO 07/18/18 Felodipine [Felodipine ER] 10 mg PO 07/18/18 Hydrocodone/Acetaminophen 1 each PO 07/18/18 [Hydrocodone-Acetamin 5-325 mg] Lovastatin 40 mg PO 07/18/18 Omeprazole 20 mg PO 07/18/18 Potassium Gluconate 99 mg PO 07/18/18 Zolpidem Tartrate [Ambien] 10 mg PO 07/18/18 hydroCHLOROthiazide 25 mg PO 07/18/18 [Hydrochlorothiazide] - Allergies Allergies/Adverse Reactions: Allergies Allergy/AdvReac Type Severity Reaction Status Date / Time No Known Drug Allergies Allergy Unverified 07/18/18 17:01 Review of Systems - Constitutional Constitutional: denies: Fatigue, Fever, Chills, Malaise - Eyes Eyes: denies: Pain - Ears, Nose & Throat Ears, Nose & Throat: denies: Ear pain - Cardiovascular Cariovascular: denies: Irregular heart rate, Chest pain - Respiratory Respiratory: denies: Cough, Sputum production - Gastrointestinal Gastrointestinal: reports: Nausea, Vomiting (Unremitting. Dark.) - Neurological Neurological: denies: General weakness, Focal weakness - Psychiatric Psychiatric: denies: Depression, Anxiety Exam - Vital Signs Reviewed Vital Signs: Yes Vital Signs: Vital Signs x48h Temp Pulse Resp BP Pulse Ox 07/18/18 20:23 36.1 C L 105 H 24 106/65 96 07/18/18 18:30 36.5 C 101 H 24 103/80 100 07/18/18 17:23 35.8 C L 104 H 30 H 133/65 H 96 07/18/18 17:02 114 H 20 104/41 L 99 - Physical Exam General Appearance: positive: No acute distress Eyes Bilateral: positive: No lid inflammation, Conjunctivae nml, No scleral icterus ENT: positive: Dry mucous membranes Neck: positive: Trachea midline Respiratory: positive: Chest non-tender, No respiratory distress, Breath sounds nml Cardiovascular: positive: Tachycardia Abdomen: positive: Non-tender, Nml bowel sounds. negative: Guarding, Rebound, Hepatomegaly, Splenomegaly Skin: positive: Color nml Extremities: positive: Non-tender, Nml appearance Neurologic/Psychiatric: positive: Oriented x3, Motor nml, Sensation nml, Mood/affect nml Conclusion/Plan - Diagnosis Diagnosis: Paraesophageal hernia with likely gastric volvulus causing gastric outlet obstruction - Plan Plan: With the patient's elevated white blood cell count and lactic acidosis combined with the possibility of extraluminal gas and a large paraesophageal hernia/gastric volvulus the proper treatment would be to be transferred to a higher level of care. The operation indicated by this presentation far exceeds the surgical capabilities of our hospital. I explained this to the patient. I explained that her surgical intervention is likely to be very complicated and protracted. The patient vocalized an understanding and is in agreement with transfer to a higher level of care. I discussed this with Dr. Wheat as well. Quite simply we do not have the resources be a personnel or surgical equipment to handle this type of problem. I wish the patient well and asked that she let us know how she has done following her surgical intervention. 45 minutes of [id number] time spent with the patient, the majority of which was spent in discussion, coordination of care, and completion of the requisite paperwork Dragon disclaimer: This document was created in part using voice recognition technology. Because of the inherent limitations of the system ([employer]'s [employer] user manual states that the licensee understands that speech recognition is a statistical process and that recognition errors are inherent in the process), occasional same sounding word substitutions and grammatical errors do occur and persist despite proofreading. Please read this document for context. - Lab Results Lab results reviewed: Yes Fish Bones: 07/18/18 18:20 03/30/19 18:20 - Diagnostic Imaging Results Diagnostic Imaging Results: positive: Final report reviewed, Read independently - EKG Results EKG Interpreted Independently: No
[2018-07-18] MEDS ORDERED: FLUCONAZOLE 200 MG/100 ML 100 ML IV ONE (21:37)
[2018-07-18 21:39] LABS: GASTROCCULT POSITIVE (Negative)
[2018-07-18 21:59] LABS: BASOPHILS % (AUTO) 0.1 %; HGB - HEMOGLOBIN 12.9 g/dL (12.0-16.0); LYMPHOCYTES % (AUTO) 4.6 %; MEAN CORPUSCULAR HEMOGLOBIN 28.9 pg (27.0-31.0); MEAN CORPUSCULAR HGB CONC 31.7 g/dL (32.0-36.0); MEAN CORPUSCULAR VOLUME 91.2 fL (81.0-99.0); MEAN PLATELET VOLUME 8.4 fL (7.9-10.8); MONOCYTES % (AUTO) 5.9 %; NEUTROPHILS % (AUTO) 89.4 %; PLT - PLATELET COUNT 239 10^3/uL (130-450); RED BLOOD COUNT 4.46 10^6/uL (4.20-5.40); RED CELL DISTRIBUTION WIDTH 15.2 % (12.0-15.0); WHITE BLOOD COUNT 18.2 x10^3/uL (4.8-10.8)
[2018-07-18 22:04] LABS: ABNORMAL LYMPHS % (MANUAL) 0 %
[2018-07-18 22:46] LABS: BAND NEUTROPHILS % (MANUAL) 5 %; LYMPHOCYTES # (MANUAL) 0.9 10^3/uL (1.5-3.5); LYMPHOCYTES % (MANUAL) 5 %; MONOCYTES # (MANUAL) 0.7 10^3/uL (0.0-1.0); NEUTROPHILS # (MANUAL) 16.6 10^3/uL (1.5-6.6); NEUTROPHILS % (MANUAL) 86 %
[2018-07-18 22:47] LABS: DIFFERENTIAL COMMENT MANUAL DIFFERENTIAL; PLATELET ESTIMATE, MANUAL NORMAL (130-450,000) (NORMAL); PLATELET MORPHOLOGY NORMAL APPEARANCE (NORMAL); RBC MORPHOLOGY (MULTIPLE) NORMAL APPEARANCE (NORMAL)
[2018-07-18 23:15] VITALS: BP 87/76
== END 2018-07-18 23:05 | disposition short-term general hospital (02) ==
LOC: EDUNIT# → ED 16:51
DX: K44.9 Diaphragmatic hernia without obstruction or gangrene (principal); K31.1 Adult hypertrophic pyloric stenosis; A41.9 Sepsis, unspecified organism; I10 Essential (primary) hypertension; G89.29 Other chronic pain; R00.0 Tachycardia, unspecified; N17.9 Acute kidney failure, unspecified; Z79.82 Long term (current) use of aspirin
CPT/HCPCS: 36415; 74176; 80053; 81001; 83605; 83690; 84484; 85025; 87040; 87077; 87086; 87181; 87275; 87276; 93005; 96361; 96365; 96368; 96375; 96376; 99284; 99291; J2765; 81003